=== PATIENT | female | born 1955 | race Caucasian/White ===

== ENCOUNTER 2018-08-21 19:19 | Emergency (ER) | payer MEDICAID ==
[~2018-08-21] VITALS: Ht 162.6 cm; Wt 81.8 kg
[2018-08-21 19:43] LABS: GLUCOSE,POINT OF CARE 177 MG/DL (70-110)
[2018-08-21] MEDS ORDERED: PRED5 PO (19:58)
[2018-08-21] MEDS ORDERED: GABA-531 PO (19:58)
[2018-08-21] MEDS ORDERED: OMEG-135 PO (19:58)
[2018-08-21] MEDS ORDERED: LEVE500T53 PO (19:58)
[2018-08-21] MEDS ORDERED: ASPI-556 PO (19:58)
[2018-08-21] MEDS ORDERED: SERT100T12 PO (19:58)
[2018-08-21] MEDS ORDERED: PANT40TA25 PO (19:58)
[2018-08-21] MEDS ORDERED: VITAD1000 PO (19:58)
[2018-08-21] MEDS ORDERED: ATOR10TA84 PO (19:58)
[2018-08-21] MEDS ORDERED: TACR1 PO (19:58)
[2018-08-21] MEDS ORDERED: LORA1TAB3 PO (19:58)
[2018-08-21] MEDS ORDERED: SPIR25 PO (19:58)
[2018-08-21] MEDS ORDERED: AMLO2.5T3 PO (19:58)
[2018-08-21] MEDS ORDERED: ACET-2247 PO (19:58)
[2018-08-21] MEDS ORDERED: ACETAMINOPHEN 500 MG TABLET PO ONE (22:15)
[2018-08-21 23:07] VITALS: BP 145/71
== END 2018-08-21 23:18 | disposition home or self-care (01) ==
LOC: EMS 19:21
DX: M79.89 Other specified soft tissue disorders (principal); R20.2 Paresthesia of skin; I10 Essential (primary) hypertension; E11.9 Type 2 diabetes mellitus without complications; F32.9 Major depressive disorder, single episode, unspecified; Z88.5 Allergy status to narcotic agent; Z88.8 Allergy status to other drugs, medicaments and biological substances; Z79.82 Long term (current) use of aspirin
CPT/HCPCS: 72100; 93971; 99284